=== PATIENT | female | born 1990 | race Caucasian/White ===

== ENCOUNTER 2017-11-03 10:41 | Emergency (ER) | payer OTHER ==
--- NOTE | 2017-11-03 11:47 | UC ---
Head Injury HPI - HPI Summary HPI Summary: SLIPPED ON THE ICE WHILE WALKING HER DOG THIS MORNING 8:45AM. STRUCK FOREHEAD ON THE GROUND. HAS GOOSE EGG OVER RIGHT EYE. DENIES VISUAL DISTURBANCES, N/V. HAS A THROBBING MEJIA AND FEELS A BIT "FOGGY". NO LOC. - History Of Current Complaint Chief Complaint: UCHeadInjury Stated Complaint: HEAD INJURY Time Seen by Provider: 11/03/17 11:28 Hx Obtained From: Patient Hx Last Menstrual Period: iud Onset/Duration: Sudden Onset, Lasting Minutes, Still Present Severity Currently: Moderate Severity Initially: Moderate Pain Intensity: 6 Pain Scale Used: 0-10 Numeric Character: Dull Aggravating Factor(s): Nothing Alleviating Factor(s): Nothing Associated Signs And Symptoms: Negative: LOC (Time In Secs./Mins/Hrs), LOC Duration Unknown, Confusion, Memory Loss, Seizure, Epistaxis, Dental Malocclusion, Neck Pain, Nausea, Vomiting - Allergies/Home Medications Allergies/Adverse Reactions: Allergies Allergy/AdvReac Type Severity Reaction Status Date / Time MS Amoxicillin Allergy Nausea And Verified 11/03/17 11:04 Vomiting Home Medications: Home Medications NK [No Home Medications Reported] 11/03/17 [History Confirmed 11/03/17] PMH/Surg Hx/FS Hx/Imm Hx Previously Healthy: Yes - Surgical History Surgical History: None - Family History Known Family History: Negative: Hypertension - Social History Alcohol Use: Occasionally Substance Use Type: None Smoking Status (MU): Never Smoked Tobacco Review of Systems Constitutional: Negative Skin: Bruising Eyes: Negative ENT: Negative Respiratory: Negative Cardiovascular: Negative Gastrointestinal: Negative Neurological: Headache All Other Systems Reviewed And Are Negative: Yes Physical Exam Triage Information Reviewed: Yes Appearance: Well-Appearing, No Pain Distress, Well-Nourished Vital Signs: Initial Vital Signs Temp 98.5 F 11/03/17 10:57 Pulse 74 11/03/17 10:57 Resp 19 11/03/17 10:57 BP 119/74 11/03/17 10:57 Pulse Ox 98 11/03/17 10:57 Vital Signs Reviewed: Yes Eyes: Positive: Conjunctiva Clear ENT: Positive: Hearing grossly normal, Pharynx normal, TMs normal Neck: Positive: Supple, Nontender, No Lymphadenopathy Respiratory: Positive: No respiratory distress, No accessory muscle use Cardiovascular: Positive: Pulses Normal Abdomen Description: Positive: Soft Musculoskeletal: Positive: Other: - NOT TENDER OVER ORBITAL BONES Neurological: Positive: Alert, Other: - CN II-XII GROSSLY INTACT BILATERALLY. NEG PRONATOR DRIFT. NEGATIVE ROMBERG. FINGER TO NOSE INTACT BILATERALLY. HEEL TO FITZPATRICK INTACT BILATERALLY. HEEL TO TOE INTACT BILATERALLY. RAPID ALTERNATING MVMTS INTACT. 5/5 STRENGTH Psychological: Positive: Age Appropriate Behavior Skin: Positive: Other - SWOLLEN OVER RIGHT ORBIT/FOREHEAD WITH MILD BRUISING. SKIN INTACT Head Injury Course/Dx - Differential Dx/Diagnosis Provider Diagnoses: CONCUSSION/SCALP CONTUSION Discharge - Discharge Plan Condition: Stable Disposition: HOME Patient Education Materials: Concussion (ED), Scalp Contusion in Adults (ED) Referrals: No Primary Care Phys,NOPCP [Primary Care Provider] - Additional Instructions: OKAY FOR TYLENOL TONIGHT FOR HEADACHE. STARTING TOMORROW AFTERNOON CAN TAKE IBUPROFEN IF NEEDED. LIMIT SCREEN TIME AND AVOID ACTIVITIES THAT COULD RESULT IN ADDITIONAL HEAD INJURY. NO SPORTS FOR AT LEAST A WEEK. FOLLOW-UP WITH PCP IF SYMPTOMS ARE PERSISTENT AFTER 1 WEEK. GO TO THE ER WITHOUT FAIL IF YOU DEVELOP UNEQUAL PUPILS, VISUAL DISTURBANCE, GAIT INSTABILITY, SPEECH DIFFICULTY, NAUSEA/VOMITING, WORSENING HEADACHE, DIZZINESS, CONFUSION, WEAKNESS OR ANY OTHER CONCERNING SYMPTOMS. ALL THE NUMBER BELOW FOR ASSISTANCE IN ESTABLISHING WITH A PCP An additional resource available to assist in finding the appropriate physician for your health care needs is [facility] ([facility]). You may contact them by calling [phone].
== END 2017-11-03 11:51 | disposition home or self-care (01) ==
LOC: UCEAST 10:41
DX: S00.03XA Contusion of scalp, initial encounter (principal); W01.0XXA Fall on same level from slipping, tripping and stumbling without subsequent striking against object, initial encounter; F07.81 Postconcussional syndrome; Y92.009 Unspecified place in unspecified non-institutional (private) residence as the place of occurrence of the external cause; Z88.3 Allergy status to other anti-infective agents
CPT/HCPCS: 99201; G0463